=== PATIENT | female | born 1965 | race Caucasian/White ===

== ENCOUNTER → 2016-05-01 | Day surgery (SDC) | payer OTHER ==
[~2016-05-01] MED LIST: Dextrose 5%-Lactated Ringers 1,000 ML IV SCH; Midazolam 1 MG/ML 2 ML SDV ONE; Ondansetron 4 MG/2 ML SDV ONE; Propofol 200 MG/20 ML SDV ONE; fentaNYL 100 MCG/2 ML SDV ONE
[2016-05-01 09:36] VITALS: BP 99/64
--- NOTE | 2016-05-01 10:45 | PCM.CONS ---
H&P History of Present Illness - General Date of Service: 05/01/16 Source of Information: Patient, Provider, RN notes reviewed History Limitations: Reports: No limitations - History of Present Illness Initial Comments - Free Text/Narative: This patient is a 51-year-old woman who I been asked to see by Dr. Charles for further suggestions concerning evaluation and management of probable ulcerative colitis. She has had a four-week history of bloody diarrhea, experiencing several stools per day. This has been associated with some cramping abdominal pain. She denies any fevers, chills, or sweats. There has been intermittent nausea but only one episode of vomiting which occurred last night likely associated with the bowel prep. She does have a history of rheumatoid arthritis , that is not currently active or treated. Dr. Charles performed a colonoscopy today and she was noted to have diffuse inflammation in the colon from the rectum to the hepatic flexure. Biopsies have been obtained, Dr. Charles felt the appearance of the colonic mucosa was be most consistent with ulcerative colitis. - Related Data Allergies/Adverse Reactions: Allergies Allergy/AdvReac Type Severity Reaction Status Date / Time Penicillins Allergy Severe Rash Verified 05/01/16 06:43 Sulfa (Sulfonamide Allergy Cannot Verified 05/01/16 06:43 Antibiotics) Remember Home Medications: Home Meds Levothyroxine Sodium [Tirosint] 100 mcg PO DAILY 11/07/13 [History] Loratadine [Claritin] 1 cap PO DAILY 11/07/13 [History] atorvaSTATin [Lipitor] 20 mg PO DAILY 04/26/16 [History] metFORMIN [Glucophage] 500 mg PO BID 04/26/16 [History] Mesalamine [Pentasa] 1,000 mg PO QID #120 cap.er 05/01/16 [Rx] Prednisone [IJD: predniSONE] 40 mg PO WITHBREAKFAST #14 tab 05/01/16 [Rx] Past Medical History HEENT History: Reports: Impaired vision Cardiovascular History: Reports: High cholesterol Respiratory History: Reports: Bronchitis, recurrent, Pneumonia, recurrent Gastrointestinal History: Reports: Chronic constipation, Chronic diarrhea, Hemorrhoids [employer] History: Reports: , Therapeutic Endocrine/Metabolic History: Reports: Diabetes, type II, Hypoparathyroidism - Infectious Disease History Infectious Disease History: Reports: Chicken pox - Past Surgical History Cardiovascular Surgical History: Reports: None GI Surgical History: Reports: None Musculoskeletal Surgical History: Reports: None Social & Family History - Tobacco Use Smoking Status *Q: Former Smoker Years of Tobacco use: 30 Packs/Tins Daily: 1 Used Tobacco, but Quit: Yes Month Tobacco Last Used: april 2012 Second Hand Smoke Exposure: No - Caffeine Use Caffeine Use: Reports: Tea - Alcohol Use Days Per Week of Alcohol Use: 1 Number of Drinks Per Day: 1 Total Drinks Per Week: 1 - Recreational Drug Use Recreational Drug Use: No H&P Review of Systems - Review of Systems: Review Of Systems: See Below General: Reports: weakness. Denies: fever, chills, diaphoresis HEENT: Reports: no symptoms Pulmonary: Reports: No Symptoms Cardiovascular: Reports: no symptoms Gastrointestinal: Reports: Abdominal pain, Bloody stool, Diarrhea, Decreased appetite, Nausea Musculoskeletal: Reports: no symptoms Skin: Reports: no symptoms Neurological: Reports: No Symptoms Exam - Exam Exam: See Below - Vital Signs Vital Signs: Last Vital Signs Temp 97.3 F 05/01/16 08:00 Pulse 105 H 05/01/16 08:54 Resp 16 05/01/16 08:38 BP 99/64 05/01/16 08:54 Pulse Ox 100 05/01/16 08:20 Weight: 193 lb 1.6 oz - Exam General: alert, oriented, cooperative Neck: supple, trachea midline, +2 carotid pulse wo bruit Lungs: Clear to auscultation, Normal respiratory effort Cardiovascular: regular rate, regular rhythm, normal S1, normal S2 Abdomen: normal bowel sounds, soft. No: organomegaly, peritoneal signs, distention, guarding, rigidity, rebound, tenderness Back Exam: normal inspection, full range of motion, NT Extremities: 3, normal inspection, 10 - Patient Data Lab Results last 24 hrs: Laboratory Results - last 24 hr 05/01/16 05/01/16 Range/Units 09:30 09:30 WBC 7.4 (4.5-11.0) K/uL RBC 3.94 (3.30-5.50) M/uL Hgb 10.0 L D (12.0-15.0) g/dL Hct 32.2 L (36.0-48.0) % MCV 82 (80-98) fL MCH 25 L (27-31) pg MCHC 31 L (32-36) % Plt Count 493 H (150-400) K/uL Neut % (Auto) 65 (36-66) % Lymph % (Auto) 20 L (24-44) % [place] % (Auto) 7 H (2-6) % Eos % (Auto) 7 H (2-4) % Baso % (Auto) 1 (0-1) % Sodium 135 L (140-148) mmol/L Potassium 4.3 (3.6-5.2) mmol/L Chloride 101 (100-108) mmol/L Carbon Dioxide 25 (21-32) mmol/L Anion Gap 13.3 (5.0-14.0) mmol/L BUN 6 L D (7-18) mg/dL Creatinine 1.0 (0.6-1.0) mg/dL Est Cr Clr Drug Dosing 55.06 mL/min Estimated GFR (MDRD) 58 L (>60) Glucose 344 H (74-106) mg/dL Calcium 10.1 (8.5-10.1) mg/dL Total Bilirubin 0.2 (0.2-1.0) mg/dL AST 62 H D (15-37) U/L ALT 60 D (12-78) U/L Alkaline Phosphatase 100 (46-116) U/L Total Protein 7.5 (6.4-8.2) g/dL Albumin 3.4 (3.4-5.0) g/dL Globulin 4.1 H (2.3-3.5) g/dL Albumin/Globulin Ratio 0.8 L (1.2-2.2) Result Diagrams: 05/01/16 09:30 05/01/16 09:30 Cade Results last 24 hrs: Microbiology 05/01/16 08:07 Clostridium difficile (PCR) - Final Stool / Feces - Stool, Liquid NEGATIVE CDIFF TOXIN 05/01/16 08:07 Stool for WBCs - Final Stool / Feces - Stool, Liquid Consult PN Assessment/Plan Procedures: Procedures COMP SCREEN MAMMOGRAM ADD-ON (11/19/15) COMPLETE CBC W/AUTO DIFF WBC (05/16/13) COMPREHEN METABOLIC PANEL (05/16/13) EMERGENCY DEPT VISIT (05/16/13) RBC SED RATE NONAUTOMATED (05/16/13) RHEUMATOID FACTOR QUANT (05/16/13) ROUTINE VENIPUNCTURE (05/16/13) THER/PROPH/DIAG INJ SC/IM (05/16/13) (1) Colitis SNOMED Code(s): 951582146 Code(s): K52.9 - NONINFECTIVE GASTROENTERITIS AND COLITIS, UNSPECIFIED Current Visit: Yes Problem List Initiated/Reviewed/Updated: Yes My Orders last 24 hours: My Active Orders 05/01/16 09:30 TSH ULTRASENSITIVE [CHEM] Stat 05/01/16 10:27 Ready for Discharge [RC] PER UNIT ROUTINE Plan: ASSESSMENT AND RECOMMENDATIONS PROBABLE ULCERATIVE COLITIS-biopsies obtained today and results are pending. She has had a four-week history of bloody diarrhea associated with some cramping in the lower abdomen. Colonoscopy performed today by Dr. Charles and findings are felt to be consistent with ulcerative colitis involving the left colon to the hepatic flexure. Patient understands that this is not a confirmed diagnosis, but she would like to start treatment for presumed ulcerative colitis. We discussed options for management including mesalamine and prednisone. Potential risks of treatment were reviewed and after discussion she would like to proceed with medical management. -Mesalamine extended-release 1 g by mouth 4 times a day -Prednisone 40 mg by mouth daily x1 week -Followup with primary care provider in one week -Discontinue mesalamine and prednisone if she develops significant side effects or fever Requesting Provider: MCADAMS Date Consult Requested: 05/01/16 Reason for Consult: Left-sided colitis identified on colonoscopy Patient History Reviewed: Yes
--- NOTE | 2016-05-08 14:17 | OR ---
DATE OF PROCEDURE: 05/01/2016 PREOPERATIVE DIAGNOSIS: Persistent diarrhea. POSTOPERATIVE DIAGNOSES: 1. Severe colitis extending from dentate line to hepatic flexure colon (pattern suggestive of ulcerative colitis). 2. Single rectal polyp. OPERATIVE PROCEDURE: Flexible colonoscopy with, 1. Polypectomy by snare technique (20673). 2. Biopsies of the transverse colon and rectosigmoid colon (89259). ANESTHESIA: IV sedation. INDICATION FOR PROCEDURE: This is a 51-year-old female presenting with ongoing diarrhea as well as a sense of urgency and fullness. Plan is to proceed with a colonoscopy with biopsies and/or polypectomy. Potential risks including bleeding and perforation were discussed, and the patient wishes to proceed. DETAILS OF PROCEDURE: The patient was taken to the operating room, placed in a left lateral decubitus position. IV sedation was administered, after which the initial digital rectal exam was performed and was unremarkable. Upon entering the rectum, there was a striking colitis beginning immediately at the dentate line and this was a confluent colitis covered with more or less a fibrinous coat, and this extended essentially all the way up to the hepatic flexure and at that zone it gradually weaned, and then the mucosa proximal to the area around the hepatic flexure essentially was grossly normal. There was a small amount of bleeding present during the course of the exam when it was rubbed consistent with the patient's history. There was also a small polyp present around 5 cm from the dentate line. At this point, multiple biopsies were obtained from the transverse colon, the area that had a more mild colitis, which will give some additional histologic perspective, and then multiple biopsies obtained from the rectosigmoid where there was the severe confluent colitis. Minimal bleeding from the biopsy sites was seen, and at that point, the polyp in the rectum was encircled with the snare and excised and sent for pathologic examination. The scope was then withdrawn and the procedure then concluded. It should be notable that there did not appear to be any roughened or thickened area suggestive of carcinoma during the course of the examination. The patient will be seen by Dr. Dominguez later today to initiate workup, and then she will be set up to see Isauro Ocampo for followup next Sunday. The patient will be moving to [place] and I suspect after initial workup and treatment, transfer of care should be to one of the gastroenterologists at [facility]. Oseas Charles MD /[id number]
--- NOTE | 2016-05-08 14:23 | OR ---
DATE OF PROCEDURE: 05/01/2016 PREOPERATIVE DIAGNOSIS: Rectal bleeding. POSTOPERATIVE DIAGNOSIS: Rectal bleeding associated with diffuse colitis extending from dentate line to hepatic flexure and the rectal polyp. OPERATIVE PROCEDURES: Flexible colonoscopy with. 1. Polypectomy by snare technique (28668). 2. Biopsies of transverse colon and rectosigmoid (96302). ANESTHESIA: IV sedation. INDICATION FOR PROCEDURE: This is a 51-year-old female presenting with some ongoing problems with rectal bleeding and sense of fullness in the pelvic area. The plan is to proceed with a flexible colonoscopy with biopsies and polypectomy as indicated. Potential risks including bleeding and perforation were discussed, and the patient wishes to proceed. PROCEDURE IN DETAIL: The patient was taken to the operating room and placed in a left lateral decubitus position. IV sedation was administered after which the initial digital rectal exam was performed and was unremarkable. Colonoscope was then passed into the rectum and the peritoneal layer was striking, diffuse colitis present beginning immediately at the dentate line, 5 cm, and was also small polypoid lesion. The prep was quite good, and the scope was eventually passed to the level of cecum. The area of colitis was confluent from the dentate line up to the level of the hepatic flexure of the colon were then waned and then below that the mucosal surface was grossly normal. The stool cultures were obtained all thought this is not suggestive of an infectious process, but more likely a new onset of ulcerative colitis. At this point, multiple biopsies were obtained from the area where there was relatively minimal inflammation in the hepatic flexure to get similar different histologic review and then multiple biopsies obtained from the sigmoid colon is sent for histology as well which were sent separately. Minimal bleeding from those biopsy sites was seen. The polyp was then encircled at its base with the snare and excised. This measured around 4 or 5 mm and the specimen delivered from the field, and no bleeding was noted and the patient procedure concluded. Overall pattern would be quite consistent with new onset of ulcerative colitis. Given the pattern of inflammation beginning in the dentate line and extending to the point of approximately with no gross disease proximal to that, the patient will be set up to see Dr. Dominguez to initiate treatment early next week with internal medicine staff at [facility]. The patient will likely be moving to [place] and after that the next appointment will be likely transfer care to one of the gastroenterologists in [place] for continued care. Oseas Charles MD /[id number]
== END | disposition home or self-care (01) ==
LOC: JP.SDS 06:07
PROVIDERS: ATTEND Surgery
DX: K52.9 Noninfective gastroenteritis and colitis, unspecified (principal); D12.8 Benign neoplasm of rectum; E78.00 Pure hypercholesterolemia, unspecified; Z87.01 Personal history of pneumonia (recurrent); E11.9 Type 2 diabetes mellitus without complications; E20.9 Hypoparathyroidism, unspecified; E66.9 Obesity, unspecified; Z68.35 Body mass index [BMI] 35.0-35.9, adult; Z91.14 Patient's other noncompliance with medication regimen; Z87.891 Personal history of nicotine dependence; Z88.0 Allergy status to penicillin; Z88.2 Allergy status to sulfonamides; Z79.899 Other long term (current) drug therapy; Z79.84 Long term (current) use of oral hypoglycemic drugs
CPT/HCPCS: 36415; 45380; 45385; 80053; 84443; 85025; 87046; 87493; 87899; 88305; 89055; J2250; J2405; J2704; J3010; J7042